=== PATIENT | male | born 1950 | race Hispanic/Latino ===

== ENCOUNTER 2020-01-29 06:55 | Day surgery (SDC) | payer MEDICARE, OTHER ==
[2020-01-29] MEDS ORDERED: HEPARIN 10,000 UNITS/10 ML VIAL ONE (07:58)
[2020-01-29] MEDS ORDERED: HEPARIN/NS 5000 UNIT/500ML 1,000 ML IR ONE (07:58)
[2020-01-29] MEDS ORDERED: VERAPAMIL 5 MG/2 ML INJ ONE (07:59)
[2020-01-29] MEDS ORDERED: SODIUM CHLORIDE 0.9% 500 ML 500 ML IV SCH (08:00)
[2020-01-29] MEDS: LIDOCAINE (2%) 20 MG/1 ML VIAL 20 ML MDV INFILTRATI ONE ×2 (08:40→08:44)
[2020-01-29] MEDS: fentaNYL 100 MCG/2 ML INJ ONE ×2 (08:40→08:42)
[2020-01-29] MEDS: MIDAZOLAM 2 MG/2 ML INJ ONE ×2 (08:40→08:42)
[2020-01-29] MEDS: NITROGLYCERIN SYRINGE 3 ML ONE ×2 (08:44→08:45)
--- NOTE | 2020-01-29 09:34 | Short Stay Summary ---
Short Stay Documentation Date of service: 01/29/20 - History H&P: obtained from office - Allergies and Medications Current Medications: Allergies Penicillins Allergy (Verified 01/29/20 07:18) Rash Home Medications Medication Instructions Recorded Confirmed Last Taken Type Aspirin [Adult Aspirin] 81 mg PO DAILY 01/29/20 01/29/20 01/29/20 History AtorvaSTATin [Lipitor] 20 mg PO QHS 01/29/20 01/29/20 01/28/20 History FLUoxetine [PROzac] 20 mg PO QDAY 01/29/20 01/29/20 01/28/20 History amLODIPine [Norvasc] 10 mg PO DAILY 01/29/20 01/29/20 01/28/20 History lisinopriL [Zestril TAB] 40 mg PO QDAY 01/29/20 01/29/20 01/28/20 History Active Medications Sodium Chloride (Nacl 0.9% 500 Ml) 500 mls @ 50 mls/hr IV DIRECT JAGDEEP Stop: 01/29/20 17:59 Last Admin: 01/29/20 08:16 Dose: 50 mls/hr Documented by: - Brief post op/procedure progress note Date of procedure: 01/29/20 Pre-op diagnosis: sob and severe as Post-op diagnosis: same Procedure: see report Anesthesia: local Estimated blood loss: minimal Pathology: none - Disposition Condition at discharge: Good Disposition: [id number] TO HOME OR SELFCARE - Discharge Diagnoses (1) Hypertension Status: Chronic Qualifiers: Hypertension type: essential hypertension Qualified Code(s): I10 - Essential (primary) hypertension (2) Hyperlipemia, mixed Status: Chronic (3) SOBOE (shortness of breath on exertion) Status: Chronic (4) Aortic stenosis, severe Status: Chronic Short Stay Discharge Plan Activity: advance as tolerated Diet: low cholesterol Wound: keep clean and dry Follow up with: CÉSAR ACOSTA MD [Primary Care Provider] - 7 Days
[2020-01-29] MEDS ORDERED: HYDROcodone/ACETAMINOPHEN 5-325 MG TAB PO PRN (10:00)
[2020-01-29] MEDS ORDERED: traMADol 50 MG TAB PO PRN (10:00)
--- NOTE | 2020-01-29 10:03 | Cardiac Catherization Report ---
Left heart catheterization done on 01/29/2020. CLINICAL INFORMATION: This is a 69-year-old gentleman with severe aortic stenosis with symptoms of shortness of breath, has hypertension, hyperlipidemia, here for a left heart catheterization. Procedure was done with moderate sedation started at 8:42 and finished at 9:00 a.m., 18 minutes of moderate sedation. Clinical procedure was done via the right radial artery, sterile technique, local anesthesia, 6-Scottish radial sheath inserted. Left system JL3.5 catheter following findings: Left main is large and patent. LAD is patent with mild luminal irregularities. Diagonal 1 is medium caliber and patent. Circumflex is a large dominant vessel, patent. OM1, 2 and 3 medium caliber vessel, patent. LPDA is medium caliber vessel, it is patent. RCA engaged with JR4 catheter, small nondominant vessel, stable across the aortic valve and the following pressures. LV was 193. LVEDP at 20 mmHg, aortic was 116/51, mean gradient 57 mmHg, [id number] was 77 mmHg. No catheter was pullback gradient. No difference in the radial and aortic gradients, 5-Scottish catheters all taken over a 6-Scottish radial sheath was discontinued. Radial band applied. No hematoma, no bleeding. SUMMARY: Left main patent, LAD patent, mild luminal irregularities. Diagonal 1 patent, circumflex large, dominant, patent, OM1, OM2 and OM3 are medium caliber vessel, patent. LPDA patent. RCA small, nondominant, and patent, normal LV function with severe aortic stenosis with mean gradient 57 mmHg. The patient will be referred for TAVR, but the patient does have a proximal aortic dilatation will be determined at [facility]. JOB# [id number] ARELIS/YOSI
[2020-01-29 14:04] VITALS: BP 114/54
== END 2020-01-29 12:30 | disposition home or self-care (01) ==
LOC: CATHLABREC 06:55
PROVIDERS: ATTEND Internal Medicine
DX: I35.0 Nonrheumatic aortic (valve) stenosis (principal); R06.02 Shortness of breath; I10 Essential (primary) hypertension; E78.2 Mixed hyperlipidemia; Z79.899 Other long term (current) drug therapy; Z79.82 Long term (current) use of aspirin; Z88.0 Allergy status to penicillin; Z90.49 Acquired absence of other specified parts of digestive tract; Z85.46 Personal history of malignant neoplasm of prostate; Z98.890 Other specified postprocedural states
CPT/HCPCS: 93005; 93458; 99156; C1769; C1894; J1644; J2250; J3010; J7040; Q9967